=== PATIENT | female | born 2000 | race Caucasian/White ===

== ENCOUNTER 2020-05-30 18:57 | Emergency (ER) | payer OTHER ==
[~2020-05-30] VITALS: Ht 170.2 cm; Wt 157.0 kg
[2020-05-30 19:00] VITALS: BP 139/82
--- NOTE | 2020-05-30 19:27 | PHYS DOC ---
Past History Past Medical History: Other Past Surgical History: Other Smoking: Non-smoker Alcohol Use: None Drug Use: None General Adult EDM: Chief Complaint: BACK PAIN OR INJURY HPI: HPI: 19-year-old female presents with low back pain worse on the right side. The patient started a job moving [employer] for [employer] 5 days ago. She has had soreness and general discomfort, but today her back is much tighter and more painful than the other days. She is concerned what is happened. There is no particular inciting event. She denies any trauma or falls. She is very overweight. She has no other complaints at this time. Review of Systems: Review of Systems: Constitutional: Denies fever or chills Eyes: Denies change in visual acuity HENT: Denies nasal congestion or sore throat Respiratory: Denies cough or shortness of breath Cardiovascular: Denies chest pain or edema GI: Denies abdominal pain, nausea, vomiting, bloody stools or diarrhea : Denies dysuria Musculoskeletal: Low back pain Integument: Denies rash Neurologic: Denies headache, focal weakness or sensory changes Endocrine: Denies polyuria or polydipsia Lymphatic: Denies swollen glands Psychiatric: Denies depression or anxiety Heart Score: Risk Factors: Risk Factors: DM, Current or recent (<one month) smoker, HTN, HLP, family history of CAD, obesity. Risk Scores: Score 0 - 3: 2.5% MACE over next 6 weeks - Discharge Home Score 4 - 6: 20.3% MACE over next 6 weeks - Admit for Clinical Observation Score 7 - 10: 72.7% MACE over next 6 weeks - Early Invasive Strategies Allergies: Allergies: Allergies Coded Allergies Type Severity Reaction Last Updated Verified No Known Drug Allergies 08/06/16 No Physical Exam: PE: Constitutional: Well developed, morbidly obese, well nourished, no acute distress, non-toxic appearance. [] HENT: Normocephalic, atraumatic, bilateral external ears normal, oropharynx moist, no oral exudates, nose normal. [] Eyes: PERRLA, EOMI, conjunctiva normal, no discharge. [] Neck: Normal range of motion, no tenderness, supple, no stridor. [] Cardiovascular:Heart rate regular rhythm, no murmur [] Lungs & Thorax: Bilateral breath sounds clear to auscultation [] Abdomen: Bowel sounds normal, soft, no tenderness, no masses, no pulsatile masses. [] Skin: Warm, dry, no erythema, no rash. [] Back: Moderate to severe lumbar paraspinal muscle spasm on both sides. No particular point tenderness. [] Extremities: No tenderness, no cyanosis, no clubbing, ROM intact, no edema. [] Neurologic: Alert and oriented X 3, normal motor function, normal sensory function, no focal deficits noted. [] Psychologic: Affect normal, judgement normal, mood normal. [] EKG: EKG: [] Radiology/Procedures: Radiology/Procedures: [] Course & Med Decision Making: Course & Med Decision Making Pertinent Labs and Imaging studies reviewed. (See chart for details) I discussed with the patient acute treatment of ibuprofen 3 times a day and Flexeril. I have advised that she may need to consider physical therapy if this does not help. I also told her that long-term her best option would be to lose a significant amount of weight. Patient states verbal understanding. She is stable for discharge at this time. [] Elion Disclaimer: [place] Disclaimer: This electronic medical record was generated, in whole or in part, using a voice recognition dictation system. Departure Departure: Impression: Primary Impression: Lumbar back sprain Qualified Codes: S33.5XXA - Sprain of ligaments of lumbar spine, initial encounter Disposition: 01 HOME/RESIDENCE PRIOR TO ADM Condition: STABLE Referrals: ELMIRA PIERRE (PCP) Patient Instructions: Low Back Strain with [facility] Scripts Naproxen (NAPROXEN) 500 Mg Tablet. 1 TAB PO BID PRN for PAIN, #60 TAB 1 Refill take with a small amount of food Prov: ASIF BELCHER DO 05/30/20 Cyclobenzaprine Hcl (CYCLOBENZAPRINE HCL) 10 Mg Tablet 1 TAB PO TID PRN for MUSCLE SPASMS, #30 TAB Prov: ASIF BELCHER DO 05/30/20 Justification of Admission: Justification of Admission: Justification of Admission Dx: N/A ASIF EBLCHER DO May 30, 2020 19:27
[2020-05-30] MEDS ORDERED: HYDROcodone/APAP 5/325MG 1 TAB TABLET PO ONE (19:30)
[2020-05-30 20:08] LABS: BACTERIA,URINE MOD /HPF (0-FEW); BILIRUBIN,URINE NEG (NEG); CLARITY,URINE HAZY; COLOR,URINE YELLOW; GLUCOSE,URINE NEG (NEG); NITRITE,URINE NEG (NEG); RBC,URINE OCC /HPF (0-2); SQUAMOUS EPITHELIAL CELL,UR MOD /LPF; UROBILINOGEN,URINE 0.2 mg/dL (0.2 mg/dL)
[2020-05-30 20:09] LABS: AMORPHOUS SEDIMENT,UR PRESENT /HPF
[2020-05-30] MEDS ORDERED: CYCLOBENZAPRINE 10 MG TABLET. PO ONE (20:15)
[2020-05-30] MEDS ORDERED: NAPROXEN 500 MG TABLET PO ONE (20:15)
[2020-05-30] MEDS ORDERED: NAPR500T8 PO (20:16)
[2020-05-30] MEDS ORDERED: CYCL-331 PO (20:16)
== END 2020-05-30 20:30 | disposition home or self-care (01) ==
LOC: ER 18:57
DX: S33.5XXA Sprain of ligaments of lumbar spine, initial encounter (principal); Z98.890 Other specified postprocedural states; X50.9XXA Other and unspecified overexertion or strenuous movements or postures, initial encounter; Y93.89 Activity, other specified; Y92.89 Other specified places as the place of occurrence of the external cause; Y99.8 Other external cause status
CPT/HCPCS: 81001; 81025; 87086; 99284

== ENCOUNTER 2020-07-06 17:50 | Emergency (ER) | payer OTHER ==
[~2020-07-06] VITALS: Ht 167.6 cm; Wt 162.4 kg
[~2020-07-06 17:50] MED LIST: CYCL-331 PO; NAPR500T8 PO
--- NOTE | 2020-07-06 17:56 | PHYS DOC ---
Past History Past Medical History: Anxiety Past Surgical History: No Surgical History Smoking: Non-smoker Alcohol Use: Occasionally Drug Use: None General Adult HPI: HPI: "..My feet have been swollen for past week..more the last two days...".." Dr. Patel said I should get checked..out..and actually see someone...because I ve been doing only tele visits...' Patient is a 20 year old female who presents with above hx and complaints of bilateral feet swelling for the past 2 weeks which has gotten worse last 2 days. Patient denies any trauma. Patient denies any change in meds. Patient does h ave some blisters on right heel. Minimal pitting edema. Patient denies any history of coagulopathy or DVTs. No recent travel. No specific ill contacts. Patient job requires her to stand on her feet for long periods of time. Patient normally follows with Dr. Patel. No history immunosuppression. Review of Systems: Review of Systems: Constitutional: Denies fever or chills Eyes: Denies change in visual acuity HENT: Denies nasal congestion or sore throat Respiratory: Denies cough or shortness of breath Cardiovascular: Denies chest pain . Complaints of bilateral foot edema. GI: Denies abdominal pain, nausea, vomiting, bloody stools or diarrhea : Denies dysuria Musculoskeletal: Denies back pain or joint pain Integument: Denies rash Neurologic: Denies headache, focal weakness or sensory changes Endocrine: Denies polyuria or polydipsia Lymphatic: Denies swollen glands Psychiatric: Denies depression or anxiety Heart Score: HEART Score for Chest Pain: HEART Score for Chest Pain Response (Comments) Value History Moderately Suspicious 1 ECG Normal 0 Age < 45 0 Risk Factors No Risk Factors 0 Troponin < Normal Limit 0 Total 1 Risk Factors: Risk Factors: DM, Current or recent (<one month) smoker, HTN, HLP, family history of CAD, obesity. Risk Scores: Score 0 - 3: 2.5% MACE over next 6 weeks - Discharge Home Score 4 - 6: 20.3% MACE over next 6 weeks - Admit for Clinical Observation Score 7 - 10: 72.7% MACE over next 6 weeks - Early Invasive Strategies Family History: Family History: Noncontributory Current Medications: Current Meds: See nursing for home meds Allergies: Allergies: Allergies Coded Allergies Type Severity Reaction Last Updated Verified No Known Drug Allergies 08/06/16 No Physical Exam: PE: Constitutional: Moderate acute distress, non-toxic appearance. [] HENT: Normocephalic, atraumatic, bilateral external ears normal, oropharynx moist, no oral exudates, nose normal. [] Eyes: PERRLA, EOMI, conjunctiva normal, no discharge. [] Neck: Normal range of motion, no tenderness, supple, no stridor. [] Cardiovascular:Heart rate regular rhythm, no murmur [] Lungs & Thorax: Bilateral breath sounds clear to auscultation [] Abdomen: Bowel sounds normal, soft, no tenderness, no masses, no pulsatile masses. Morbidly obese. Skin: Warm, dry, no erythema, no rash. [] Back: No tenderness, no CVA tenderness. [] Extremities: No tenderness, no cyanosis, no clubbing, ROM intact, bilateral foot edema. [] Blisters on right heel. No cording and legs appreciated Neurologic: Alert and oriented X 3, normal motor function, normal sensory function, no focal deficits noted. [] Psychologic: Affect anxious , judgement normal, mood normal. [] EKG: EKG: Interpretation EKG shows a sinus tachycardia at 1 beats. No findings of acute STEMI or contralateral changes [] Radiology/Procedures: Radiology/Procedures: [address] [address] IMAGING REPORT Signed PATIENT: ZAK BAJWA ACCOUNT: [id number] : 2000 LOCATION: ER AGE: 20 SEX: F EXAM STATUS: REG ER ORD. PHYSICIAN: ROYAL WATSON MD REASON: Dyspnea PROCEDURE: CHEST PA & LATERAL CHEST PA LATERAL History: Dyspnea Comparison: July 12, 2012 Findings: 2 views of the chest are submitted. There is no infiltrate, pneumothorax, or effusion. Pericardial cardiac silhouette is within normal limits in size. Impression: 1. There is no convincing radiographic evidence of acute cardiopulmonary disease. Electronically signed by: Allie Silva MD (07/06/2020 6:54 PM) [facility] DICTATED AND SIGNED BY: ALLIE SILVA MD DATE: 07/06/20 3457 CC: ROYAL WATSON MD; PCP,NO ~ [] Course & Med Decision Making: Course & Med Decision Making Pertinent Labs and Imaging studies reviewed. (See chart for details) Patient to reduce salt intake. Patient follow-up primary care. Have primary care review ED work-up. Patient return with any concerns. Impression: 1. Bilateral foot edema 2. Morbid obesity [] Dragon Disclaimer: Dragon Disclaimer: This electronic medical record was generated, in whole or in part, using a voice recognition dictation system. Departure Departure: Disposition: 01 HOME/RESIDENCE PRIOR TO ADM Condition: STABLE Referrals: PCP,NO (PCP) Justification of Admission: Justification of Admission: Justification of Admission Dx: N/A Dragon Disclaimer This chart was dictated in whole or in part using Voice Recognition software in a busy, high-work load, and often noisy Emergency Department environment. It may contain unintended and wholly unrecognized errors or omissions. ROYAL WATSON MD Jul 06, 2020 17:56
[2020-07-06 18:30] LABS: BACTERIA,URINE FEW /HPF (0-FEW); BILIRUBIN,URINE NEG (NEG); CLARITY,URINE CLEAR; COLOR,URINE YELLOW; GLUCOSE,URINE NEG (NEG); NITRITE,URINE NEG (NEG); SQUAMOUS EPITHELIAL CELL,UR MOD /LPF; UROBILINOGEN,URINE 0.2 mg/dL (0.2 mg/dL)
[2020-07-06 18:35] LABS: BARBITURATES NEG (NEG); BENZODIAZEPINES NEG (NEG); CANNABINOIDS NEG (NEG); COCAINE NEG (NEG); METHADONE NEG (NEG); OPIATES NEG (NEG); PHENCYCLIDINE NEG (NEG)
[2020-07-06 18:38] LABS: AMPHETAMINE/METHAMPHETAMINE NEG (NEG)
[2020-07-06] MEDS ORDERED: IV RINGERS SOLUTION,LACTATED 1,000 ML IV ONE (18:45)
[2020-07-06 18:47] LABS: BASO # 0.1 x10^3/uL (0.0-0.2); BASO % 1 % (0-3); EOS # 0.1 x10^3/uL (0.0-0.7); EOS % 2 % (0-3); HEMATOCRIT 40.9 % (36.0-47.0); HEMOGLOBIN 13.9 g/dL (12.0-15.5); LYMPH # 1.9 x10^3/uL (1.0-4.8); LYMPH % 34 % (24-48); MEAN CORPUSCULAR HEMOGLOBIN 31 pg (25-35); MEAN CORPUSCULAR HGB CONC 34 g/dL (31-37); MEAN CORPUSCULAR VOLUME 91 fL (79-100); MONO # 0.5 x10^3/uL (0.0-1.1); MONO % 9 % (0-9); NEUT # 3.2 x10^3uL (1.8-7.7); NEUT % 55 % (31-73); PLATELET COUNT 220 x10^3/uL (140-400); RED BLOOD COUNT 4.49 x10^6/uL (3.50-5.40); RED CELL DISTRIBUTION WIDTH 12.5 % (11.5-14.5); WHITE BLOOD COUNT 5.7 x10^3/uL (4.0-11.0)
--- NOTE | 2020-07-06 18:52 | EKG ---
[facility] ED [facility] [address] [place] [id number] Test Date: 2020-07-06 Test Time: 18:32:07 Pat Name: ZAK BAJWA Department: Room: Gender: F Tool Design Draftsperson: MAKENZIE : 2000 Requested By: ROYAL WATSON Order Number: [id number] Reading MD: Measurements Intervals [place] Rate: 101 P: 30 CA: 124 QRS: 10 QRSD: 88 T: 17 QT: 344 QTc: 447 Interpretive Statements SINUS TACHYCARDIA OTHERWISE NORMAL ECG RI6.02 No previous ECG available for comparison
--- NOTE | 2020-07-06 18:57 | RAD ---
CHEST PA LATERAL History: Dyspnea Comparison: July 12, 2012 Findings: 2 views of the chest are submitted. There is no infiltrate, pneumothorax, or effusion. Pericardial cardiac silhouette is within normal limits in size. Impression: 1. There is no convincing radiographic evidence of acute cardiopulmonary disease. Electronically signed by: Ander Silva MD (07/06/2020 6:54 PM) [facility]
[2020-07-06 19:02] LABS: CALCIUM 8.8 mg/dL (8.5-10.1); GFR 69.3
[2020-07-06 19:16] LABS: ALBUMIN 3.2 g/dL (3.4-5.0); DIRECT BILIRUBIN 0.1 mg/dL (0.0-0.2); TOTAL BILIRUBIN 0.2 mg/dL (0.2-1.0); TOTAL PROTEIN 6.9 g/dL (6.4-8.2)
[2020-07-06 20:16] VITALS: BP 145/71
[2020-07-06] MEDS ORDERED: FUROSEMIDE 40 MG TABLET PO ONE (20:45)
[2020-07-06] MEDS ORDERED: POTASSIUM CHLORIDE 20 MEQ TABLET.ER. PO ONE (20:45)
== END 2020-07-06 21:14 | disposition home or self-care (01) ==
LOC: ER 17:50
DX: R60.0 Localized edema (principal); E66.01 Morbid (severe) obesity due to excess calories; F41.9 Anxiety disorder, unspecified; Z68.43 Body mass index [BMI] 50.0-59.9, adult
CPT/HCPCS: 36415; 71046; 80048; 80076; 80307; 81001; 81025; 82550; 83735; 83880; 84443; 85025; 85379; 85610; 93005; 96360; 96361; 99285; J7120

== ENCOUNTER 2020-10-24 20:56 | Emergency (ER) | payer OTHER ==
[~2020-10-24] VITALS: Ht 165.1 cm; Wt 150.0 kg
--- NOTE | 2020-10-24 21:29 | PHYS DOC ---
Past History Past Medical History: Other (PAULA LUO APRN) Past Surgical History: No Surgical History (PAULA LUO APRN) Smoking: Non-smoker Alcohol Use: Occasionally Drug Use: None (PAULA LUO APRN) Adult General Chief Complaint Chief Complaint: NAUSEA/VOMITING/[facility] Patient is a 20-year-old female presents for nausea, headache, sore throat, and diarrhea for the last 2 days. Patient states there is a possibility she is , she is no longer on control and reports unprotected intercourse recently. Denies vomiting. Denies shortness of breath or cough. Denies fever. Denies abdominal pain. (PAULA LUO APRN) Review of Systems Review of Systems Constitutional: Denies fever or chills [] Eyes: Denies change in visual acuity, redness, or eye pain [] HENT: Denies nasal congestion headache. Complains of sore throat Respiratory: Denies cough or shortness of breath [] Cardiovascular: No additional information not addressed in HPI [] GI: Denies abdominal pain, denies vomiting, Reports two days history of diarrhea, nausea : Denies dysuria or hematuria [] Musculoskeletal: Denies back pain or joint pain [] Integument: Denies rash or skin lesions [] Neurologic: Denies headache, focal weakness or sensory changes [] Endocrine: Denies polyuria or polydipsia [] All other systems were reviewed and found to be within normal limits, except as documented in this note. (PAULA LUO APRN) Allergies Allergies Allergies Coded Allergies Type Severity Reaction Last Updated Verified No Known Drug Allergies 08/06/16 No (PAULA LUO APRN) Physical Exam Physical Exam Constitutional: Well developed, well nourished, no acute distress, non-toxic appearance. Obese [] HENT: Normocephalic, atraumatic, bilateral external ears normal, oropharynx moist, no oral exudates, nose normal. Tonsils 2+ without erythema or purulence. Post nasal drip minimal[] Eyes: PERRLA, EOMI, conjunctiva normal, no discharge. [] Neck: Normal range of motion, no tenderness, supple, no stridor. [] Cardiovascular:Heart rate regular rhythm, no murmur [] Lungs & Thorax: Bilateral breath sounds clear to auscultation [] Abdomen: Bowel sounds normal, soft, no tenderness, no masses, no pulsatile masses. [] Skin: Warm, dry, no erythema, no rash. [] Back: No tenderness, no CVA tenderness. [] Extremities: No tenderness, no cyanosis, no clubbing, ROM intact, no edema. [] Neurologic: Alert and oriented X 3, normal motor function, normal sensory function, no focal deficits noted. [] Psychologic: Affect normal, judgement normal, mood normal. [] (PAULA LUO APRN) Current Patient Data Vital Signs Vital Signs Date Time Temp Pulse Resp B/P (MAP) Pulse Ox O2 Delivery O2 Flow Rate FiO2 10/24/20 20:56 98.4 112 22 161/104 (123) 97 Room Air (PAULA LUO APRN) EKG EKG [] (PAULA LUO APRN) Radiology/Procedures Radiology/Procedures [] (PAULA LUO APRN) Heart Score Risk Factors: Risk Factors: DM, Current or recent (<one month) smoker, HTN, HLP, family history of CAD, obesity. Risk Scores: Risk Factors: DM, Current or recent (<one month) smoker, HTN, HLP, family history of CAD, obesity. (PAULA LUO APRN) Course & Med Decision Making Course & Med Decision Making Pertinent Labs and Imaging studies reviewed. (See chart for details) Likely viral syndrome, without acute abnormalities on lab evaluation. Will plan do discharge with antiemetics as needed (PAULA LUO APRN) Dragon Disclaimer Dragon Disclaimer This electronic medical record was generated, in whole or in part, using a voice recognition dictation system. (PAULA LUO APRN) Departure Departure: Impression: Primary Impression: Nausea Disposition: 01 DC HOME SELF CARE/HOMELESS Condition: GOOD Referrals: PCP,UNKNOWN (PCP) Patient Instructions: Nausea, Adult Additional Instructions: As discussed to make sure you stay hydrated. May take Tylenol or ibuprofen as needed for discomfort. Your test was negative today. Follow-up with your primary care provider as needed Scripts Ondansetron Hcl (ZOFRAN) 4 Mg Tablet 4 MG PO TID PRN PRN for NAUSEA, #10 TAB Prov: PAULA LUO APRN 10/24/20 Dragon Disclaimer This chart was dictated in whole or in part using Voice Recognition software in a busy, high-work load, and often noisy Emergency Department environment. It may contain unintended and wholly unrecognized errors or omissions. (ROYAL WATSON MD) Attending Signature Attending Signature I have participated in the care of this patient and I have reviewed and agree with all pertinent clinical information above including history, exam, and recommendations. (ROYAL WATSON MD) PAULA LUO APRN Oct 24, 2020 21:29 ROYAL WATSON MD Oct 25, 2020 22:38
[2020-10-24 21:58] LABS: BASO % 0 % (0-3); EOS # 0.1 x10^3/uL (0.0-0.7); EOS % 2 % (0-3); HEMATOCRIT 41.2 % (36.0-47.0); HEMOGLOBIN 13.8 g/dL (12.0-15.5); LYMPH # 1.9 x10^3/uL (1.0-4.8); LYMPH % 23 % (24-48); MEAN CORPUSCULAR HEMOGLOBIN 30 pg (25-35); MEAN CORPUSCULAR HGB CONC 34 g/dL (31-37); MEAN CORPUSCULAR VOLUME 89 fL (79-100); MONO # 0.7 x10^3/uL (0.0-1.1); MONO % 8 % (0-9); NEUT # 5.7 x10^3uL (1.8-7.7); NEUT % 67 % (31-73); PLATELET COUNT 237 x10^3/uL (140-400); RED BLOOD COUNT 4.63 x10^6/uL (3.50-5.40); RED CELL DISTRIBUTION WIDTH 12.6 % (11.5-14.5); WHITE BLOOD COUNT 8.4 x10^3/uL (4.0-11.0)
[2020-10-24 22:00] LABS: CREATININE 0.9 mg/dL (0.6-1.0); GFR 78.3; POTASSIUM 4.1 mmol/L (3.5-5.1)
[2020-10-24 22:08] LABS: BACTERIA,URINE 0 /HPF (0-FEW); BILIRUBIN,URINE NEG (NEG); CLARITY,URINE CLEAR; COLOR,URINE YELLOW; GLUCOSE,URINE NEG (NEG); NITRITE,URINE NEG (NEG); RBC,URINE 0 /HPF (0-2); SQUAMOUS EPITHELIAL CELL,UR OCC /LPF; UROBILINOGEN,URINE 0.2 mg/dL (0.2 mg/dL); WBC,URINE 0 /HPF (0-4)
[2020-10-24] MEDS ORDERED: ONDA4TAB7 PO (22:10)
[2020-10-24 22:38] VITALS: BP 136/84
[2020-10-24] MEDS ORDERED: ONDANSETRON ODT 4 MG TAB.RAPDIS PO ONE (22:45)
== END 2020-10-24 22:40 | disposition home or self-care (01) ==
LOC: ER 20:56
DX: R11.0 Nausea (principal); R51.9 Headache, unspecified; J02.9 Acute pharyngitis, unspecified; R19.7 Diarrhea, unspecified
CPT/HCPCS: 36415; 80048; 81001; 81025; 85025; 99283; Q0162

== ENCOUNTER 2020-12-28 22:11 | Emergency (ER) | payer OTHER ==
[~2020-12-28] VITALS: Ht 165.1 cm; Wt 150.0 kg
[~2020-12-28 22:11] MED LIST changes: +ONDA4TAB7 PO
--- NOTE | 2020-12-28 22:16 | PHYS DOC ---
Past History Past Medical History: Anxiety, Bipolar, Depression Past Surgical History: No Surgical History Smoking: Non-smoker Alcohol Use: Occasionally Drug Use: None General Adult HPI: HPI: ".. I am Bipolar.. and I get really depressed sometimes.. This is one of those times.. .. I been thinking about shooting my self... I have access to a gun.. my dad can go get it.. .. but I I probably need admission .. when I get this bad.... the only thing some one has to take care of my Dog.. Neako..." Patient is a 20 year old female who presents with above history and complaints of depression and suicidal ideation. Patient has had previous episodes of severe depression and suicide ideation which resulted in admission to [place] [address]. Patient denies any ingestion of meds tonight. Does have access to a firearm. Patient denies any recent changes or meds. No history of legal issues. Patient is accompanied by her father. Pt. primary care is Tahira Wells. Review of Systems: Review of Systems: Constitutional: Denies fever or chills Eyes: Denies change in visual acuity HENT: Denies nasal congestion or sore throat Respiratory: Denies cough or shortness of breath Cardiovascular: Denies chest pain or edema GI: Denies abdominal pain, nausea, vomiting, bloody stools or diarrhea : Denies dysuria Musculoskeletal: Denies back pain or joint pain Integument: Denies rash Neurologic: Denies headache, focal weakness or sensory changes Endocrine: Denies polyuria or polydipsia Lymphatic: Denies swollen glands Psychiatric: Complains of depression and anxiety Family History: Family History: Noncontributory to presentation Current Medications: Current Meds: See nursing for home meds Allergies: Allergies: Allergies Coded Allergies Type Severity Reaction Last Updated Verified No Known Drug Allergies 08/06/16 No Physical Exam: PE: Constitutional: in acute emotional distress, non-toxic appearance. [] HENT: Normocephalic, atraumatic, bilateral external ears normal, oropharynx moist, no oral exudates, nose normal. [] Eyes: PERRLA, EOMI, conjunctiva normal, no discharge. [] Neck: Normal range of motion, no tenderness, supple, no stridor. [] Cardiovascular: Tachycardia heart rate regular rhythm, no murmur [] Lungs & Thorax: Bilateral breath sounds equal apex auscultation [] Abdomen: Bowel sounds normal, soft, no tenderness, no masses, no pulsatile masses. Obese. Skin: Warm, dry, no erythema, no rash. [] Back: No tenderness, no CVA tenderness. [] Extremities: No tenderness, no cyanosis, no clubbing, ROM intact, no edema. [] Neurologic: Alert and oriented X 3, moves all extremities on request, has distal sensory,, no focal deficits noted. [] Psychologic: Affect tearful, anxious,, judgement normal, mood depressed. Admits to suicidal ideation. EKG: EKG: My interpretation EKG shows a sinus tachycardia at 107 bpm [] Radiology/Procedures: Radiology/Procedures: [] Heart Score: HEART Score for Chest Pain: HEART Score for Chest Pain Response (Comments) Value History Slighlty/Non-Suspicious 0 ECG Normal 0 Age < 45 0 Risk Factors No Risk Factors 0 Troponin < Normal Limit 0 Total 0 Risk Factors: Risk Factors: DM, Current or recent (<one month) smoker, HTN, HLP, family history of CAD, obesity. Risk Scores: Score 0 - 3: 2.5% MACE over next 6 weeks - Discharge Home Score 4 - 6: 20.3% MACE over next 6 weeks - Admit for Clinical Observation Score 7 - 10: 72.7% MACE over next 6 weeks - Early Invasive Strategies Course & Med Decision Making: Course & Med Decision Making Pertinent Labs and Imaging studies reviewed. (See chart for details) Pt. possible acceptance at [facility]- however will not accept a rapid COVID , lab results pending at shift change. Endorsed to Dr. Dietrich at shift change pending disposition. Impression; 1. Hx. Bipolar 2. Suicidal Ideation 3. Anxiety [] Dragon Disclaimer: Dragon Disclaimer: This electronic medical record was generated, in whole or in part, using a voice recognition dictation system. Departure Departure: Referrals: MARIE LANDA DO (PCP) [place] Disclaimer This chart was dictated in whole or in part using Voice Recognition software in a busy, high-work load, and often noisy Emergency Department environment. It may contain unintended and wholly unrecognized errors or omissions. ROYAL WATSON MD Dec 28, 2020 22:16
[2020-12-28] MEDS ORDERED: IV RINGERS SOLUTION,LACTATED 1,000 ML IV SCH (22:30)
[2020-12-28 23:07] LABS: PREG TEST PT QUAL NEGATIVE (NEG)
[2020-12-28 23:17] LABS: CALCIUM 9.1 mg/dL (8.5-10.1); CREATININE 0.9 mg/dL (0.6-1.0); GFR 78.3
[2020-12-28 23:23] LABS: ALBUMIN 3.5 g/dL (3.4-5.0); DIRECT BILIRUBIN 0.1 mg/dL (0.0-0.2); MAGNESIUM 2.1 mg/dL (1.8-2.4); TOTAL BILIRUBIN 0.2 mg/dL (0.2-1.0); TOTAL PROTEIN 7.7 g/dL (6.4-8.2)
[2020-12-28 23:28] LABS: BASO # 0.1 x10^3/uL (0.0-0.2); BASO % 1 % (0-3); EOS # 0.1 x10^3/uL (0.0-0.7); EOS % 2 % (0-3); HEMATOCRIT 41.5 % (36.0-47.0); HEMOGLOBIN 13.7 g/dL (12.0-15.5); LYMPH # 2.3 x10^3/uL (1.0-4.8); LYMPH % 26 % (24-48); MEAN CORPUSCULAR HEMOGLOBIN 30 pg (25-35); MEAN CORPUSCULAR HGB CONC 33 g/dL (31-37); MEAN CORPUSCULAR VOLUME 89 fL (79-100); MONO # 0.8 x10^3/uL (0.0-1.1); MONO % 9 % (0-9); NEUT # 5.6 x10^3uL (1.8-7.7); NEUT % 63 % (31-73); PLATELET COUNT 258 x10^3/uL (140-400); RED BLOOD COUNT 4.65 x10^6/uL (3.50-5.40); RED CELL DISTRIBUTION WIDTH 13.3 % (11.5-14.5); WHITE BLOOD COUNT 8.9 x10^3/uL (4.0-11.0)
[2020-12-28 23:30] LABS: ETHANOL < 10 mg/dL (0-10); SALIC < 2.8 mg/dL (2.8-20.0)
[2020-12-28 23:31] LABS: ACETAMIN < 2.0 mcg/mL (10-30)
[2020-12-29 00:13] LABS: INFLUENZA A PATIENT NEGATIVE (NEGATIVE); INFLUENZA B PATIENT NEGATIVE (NEGATIVE)
--- NOTE | 2020-12-29 02:19 | EKG ---
[address] [address] Test Date: 2020-12-29 Test Time: 00:11:06 Pat Name: ZAK BAJWA Department: Room: Gender: F Reed Dipper: MAKENZIE : 2000 Requested By: ROYAL WATSON Order Number: [id number] Reading MD: Measurements Intervals [place] Rate: 107 P: 26 AK: 118 QRS: 2 QRSD: 94 T: 7 QT: 338 QTc: 457 Interpretive Statements SINUS TACHYCARDIA OTHERWISE NORMAL ECG RI6.02 No previous ECG available for comparison
[2020-12-29 02:46] LABS: BARBITURATES NEG (NEG); BENZODIAZEPINES NEG (NEG); CANNABINOIDS NEG (NEG); COCAINE NEG (NEG); METHADONE NEG (NEG); OPIATES NEG (NEG); PHENCYCLIDINE NEG (NEG)
[2020-12-29 03:01] LABS: BILIRUBIN,URINE NEG (NEG); CLARITY,URINE HAZY; COLOR,URINE YELLOW; GLUCOSE,URINE NEG (NEG); NITRITE,URINE NEG (NEG); UROBILINOGEN,URINE 0.2 mg/dL (0.2 mg/dL)
[2020-12-29 03:02] LABS: BACTERIA,URINE FEW /HPF (0-FEW); RBC,URINE 0 /HPF (0-2); SQUAMOUS EPITHELIAL CELL,UR FEW /LPF
[2020-12-29 03:07] LABS: AMPHETAMINE/METHAMPHETAMINE NEG (NEG)
[2020-12-29 11:12] VITALS: BP 133/63
== END 2020-12-29 11:35 | disposition short-term general hospital (02) ==
LOC: ER 22:11
DX: R45.851 Suicidal ideations (principal); F41.9 Anxiety disorder, unspecified; F31.9 Bipolar disorder, unspecified; Z20.822 Contact with and (suspected) exposure to COVID-19
CPT/HCPCS: 36415; 80048; 80076; 80307; 80329; 81001; 83690; 83735; 84443; 84484; 84703; 85025; 85610; 85730; 87426; 87804; 93005; 96360; 99285; C9803; G0480; J7120; U0003

== ENCOUNTER 2021-06-02 14:06 | Emergency (ER) | payer SELFPAY ==
[~2021-06-02] VITALS: Ht 165.1 cm; Wt 145.5 kg
[2021-06-02 15:40] VITALS: BP 127/94
[2021-06-02] MEDS ORDERED: BENZ100C PO (15:43)
--- NOTE | 2021-06-02 15:43 | PHYS DOC ---
Past History Past Medical History: Anxiety, Bipolar, Depression Past Surgical History: No Surgical History Smoking: Non-smoker Alcohol Use: Occasionally Drug Use: None General Adult EDM: Chief Complaint: COUGH HPI: HPI: Patient is a 20-year-old female coming in for cough. Patient was diagnosed with Covid at urgent care. Patient states she has been taking an [id number] cold medicine but unsure if it contained an antitussive component. Patient did not get her Covid vaccine. No GI complaints. Unsure if she has had a fever but states she has had sweats at home. Review of Systems: Review of Systems: All other systems within normal limits except for as noted in the HPI Allergies: Allergies: Allergies Coded Allergies Type Severity Reaction Last Updated Verified No Known Drug Allergies 08/06/16 No Physical Exam: PE: Constitutional: Well developed, well nourished, no acute distress, non-toxic appearance, morbidly obese. [] HENT: Normocephalic, atraumatic, bilateral external ears normal, nose normal. [] Eyes: PERRLA, conjunctiva normal, no discharge. [] Neck: No rigidity, supple, no stridor. [] Cardiovascular: Regular rate and rhythm, brisk cap refill [] Lungs & Thorax: Non labored symmetric respirations, no tachypnea or respiratory distress [] Abdomen: Soft, nondistended. Skin: Warm, dry, no erythema, no rash. [] Back: Unremarkable Extremities: No deformities, range of motion grossly intact, no lower extremity edema [] Neurologic: Alert and oriented X 3, no focal deficits noted. [] Psychologic: Affect normal, judgement normal, mood normal. [] EKG: EKG: [] Radiology/Procedures: Radiology/Procedures: [address] [address] IMAGING REPORT Signed PATIENT: AZK BAJWA ACCOUNT: [id number] : 2000 LOCATION: ER AGE: 20 SEX: F EXAM STATUS: REG ER ORD. PHYSICIAN: DAVION BLACKWELL MD REASON: covid PROCEDURE: CHEST AP ONLY Single AP view of the chest. Comparison: 07/06/2020. Indication: Covid positive Findings: The heart is not enlarged. There is no pneumothorax or effusion. No air space or interstitial disease. Impression: 1. No acute cardiopulmonary process. 2. No significant interstitial findings suggestive of Covid pneumonia this point. Electronically signed by: Fili Trotter MD (06/02/2021 4:07 PM) [facility] DICTATED AND SIGNED BY: FILI TROTTER MD DATE: 06/02/21 1606 CC: DAVION BLACKWELL MD; PCP,NO ~MTH0 0 [] Heart Score: C/O Chest Pain: No Risk Factors: Risk Factors: DM, Current or recent (<one month) smoker, HTN, HLP, family history of CAD, obesity. Risk Scores: Score 0 - 3: 2.5% MACE over next 6 weeks - Discharge Home Score 4 - 6: 20.3% MACE over next 6 weeks - Admit for Clinical Observation Score 7 - 10: 72.7% MACE over next 6 weeks - Early Invasive Strategies Course & Med Decision Making: Course & Med Decision Making Pertinent Labs and Imaging studies reviewed. (See chart for details) [] Dragon Disclaimer: Dragon Disclaimer: This electronic medical record was generated, in whole or in part, using a voice recognition dictation system. Departure Departure: Impression: Primary Impression: COVID Disposition: 01 HOME / SELF CARE / HOMELESS Condition: IMPROVED Referrals: MARIE LANDA DO (PCP) Patient Instructions: Cough, Adult Additional Instructions: Take Tylenol or Motrin as needed for fever. Recommend Mucinex and increase fluid intake for congestion. Scripts Benzonatate (TESSALON PERLE) 100 Mg Capsule 1 CAP PO TID PRN for COUGH, #21 CAP Prov: DAVION BLACKWELL MD 06/02/21 DAVION BLACKWELL MD Jun 02, 2021 15:43
--- NOTE | 2021-06-02 16:09 | RAD ---
Single AP view of the chest. Comparison: 07/06/2020. Indication: Covid positive Findings: The heart is not enlarged. There is no pneumothorax or effusion. No air space or interstitial diseas e. Impression: 1. No acute cardiopulmonary process. 2. No significant interstitial findings suggestive of Covid pneumonia this point. Electronically signed by: Fili Trotter MD (06/02/2021 4:07 PM) [facility]
== END 2021-06-02 16:30 | disposition home or self-care (01) ==
LOC: ER 14:06
DX: U07.1 COVID-19 (principal)
CPT/HCPCS: 71045; 99283